=== PATIENT | female | born 1990 | race Caucasian/White ===

== ENCOUNTER 2017-01-25 23:47 | Emergency (ER) | payer OTHER ==
[~2017-01-25] VITALS: Ht 172.7 cm; Wt 89.8 kg
[2017-01-25 23:52] VITALS: BP 138/75
--- NOTE | 2017-01-26 01:30 | NUR ---
PATIENT AMBULATED TO ER BED 8.
--- NOTE | 2017-01-26 01:40 | NUR ---
PT IS 26/F BIB BOYFRIEND TO ED WITH C/O EPIGASTRIC PAIN, RADIATING TO HER LOWER BACK ST ARTED TODAY 2044 HOURS. PT STATES NO MED HX. DENIES N/V/D; SKIN IS PINK/WARM/DRY; AAOX4 WITH EVEN AND STEADY GAIT; LUNGS CLEAR BL; HR EVEN AND REGULAR; PT DENIES ANY FEVER, CP, SOB, OR COUGH AT THIS TIME; PATIENT STATES PAIN OF 5/10 AT THIS TIME; VSS; PATIENT POSITIONED FOR COMFORT; HOB ELEVATED; BEDRAILS UP X2; BED DOWN. ER MD MADE AWARE OF PT STATUS.
[2017-01-26] MEDS ORDERED: KETOROLAC 60 MG/2 ML VIAL IM ONE (02:05)
--- NOTE | 2017-01-26 02:40 | NUR ---
PT BACK ON UNIT FROM X-RAY
[2017-01-26 02:58] VITALS: BP 123/60
--- NOTE | 2017-01-26 02:58 | NUR ---
Patient discharged with v/s stable. Written and verbal after care instructions given and explained. Patient alert, oriented and verbalized understanding of instructions. Ambulatory with steady gait. All questions addressed prior to discharge. ID band removed. Patient advised to follow up with PMD. Rx of TRAMADOL HYDROCHLORIDE given. Patient educated on indication of medication including possible reaction and side effects. Opportunity to ask questions provided and answered.
== END 2017-01-26 02:58 | disposition home or self-care (01) ==
LOC: MED 23:47
DX: S29.012A Strain of muscle and tendon of back wall of thorax, initial encounter (principal); F41.9 Anxiety disorder, unspecified; X58.XXXA Exposure to other specified factors, initial encounter; Y93.89 Activity, other specified; Y92.89 Other specified places as the place of occurrence of the external cause; Y99.8 Other external cause status
CPT/HCPCS: 74022; 81002; 81025; 96372; 99284; J1885

== ENCOUNTER 2017-01-29 10:25 | Emergency (ER) | payer OTHER ==
[~2017-01-29] VITALS: Ht 152.4 cm; Wt 84.8 kg
[2017-01-29 10:54] VITALS: BP 129/76
--- NOTE | 2017-01-29 12:31 | NUR ---
Pt taken to bed 8.
--- NOTE | 2017-01-29 12:36 | NUR ---
26/ presents to ED for evaluation of vomiting x2 days. Patient states "I can't keep anything down." Patient c/o severe nausea and vomiting. Pt also reports she was seen here [facility] for epigastric pain and was discharged with Tramadol. Pt denies abd pain at this time. Pt c/o lower back pain and states "Sometimes it radiates up to my left shoulder." No vomiting noted at this time. Patient is AOX4, clear speech, ambulatory with steady gait. VSS. Pt states "I've been drinking pedialyte today and I kept that down." Patient also states she had a fever yesterday, "I had a fever for a few minutes so I hopped in the shower and it went away." Patient afebrile at this time. Pt provided with a warm blanket and placed in position of comfort. Boyfriend at bedside. Pt awaiting ERMD.
--- NOTE | 2017-01-29 13:14 | NUR ---
Patient being evaluated by Dr. Marr at bedside.
[2017-01-29] MEDS ORDERED: KETOROLAC 30 MG/ML VIAL IVP ONE (13:20)
[2017-01-29] MEDS ORDERED: NACL 0.9% 500 ML IV ONE (13:20)
[2017-01-29] MEDS ORDERED: ONDANSETRON 4 MG/2 ML VIAL IVP ONE (13:20)
--- NOTE | 2017-01-29 13:38 | NUR ---
MEDICATED FOR NAUSEA AND PAIN
[2017-01-29 13:42] LABS: BASOPHILS # (AUTO) 0.3 K/uL (0.00-0.22); BASOPHILS % (AUTO) 2.7 % (0.0-2.0); EOSINOPHILS # (AUTO) 0.3 K/uL (0-0.4); EOSINOPHILS % (AUTO) 2.2 % (0.0-4.0); HEMATOCRIT 39.7 % (36-48); HEMOGLOBIN 13.1 g/dL (12.0-16.0); LYMPHOCYTES # (AUTO) 2.2 K/uL (2.5-16.5); LYMPHOCYTES % (AUTO) 16.8 % (20.5-51.1); MEAN CORPUSCULAR HEMOGLOBIN 28 pg (27-31); MEAN CORPUSCULAR HGB CONC 33 g/dL (33-37); MEAN CORPUSCULAR VOLUME 86 fL (80-94); MONOCYTES # (AUTO) 0.8 K/uL (0.8-1.0); MONOCYTES % (AUTO) 5.9 % (1.7-9.3); NEUTROPHILS # (AUTO) 9.3 K/uL (1.8-7.7); NEUTROPHILS % (AUTO) 72.4 % (42.2-75.2); PLATELET COUNT (AUTO) 256 K/uL (140-450); RED BLOOD CELL COUNT(AUTO) 4.64 MIL/uL (4.20-5.40); RED CELL DISTRIBUTION WIDTH 13.3 % (11.6-13.7); WHITE BLOOD COUNT (AUTO) 12.9 K/uL (4.8-10.8)
[2017-01-29 13:47] LABS: ANION GAP 11.4 (8-16); CARBON DIOXIDE 28.7 mmol/L (21-32); CREATININE 1.1 mg/dL (0.6-1.3); POTASSIUM 4.1 mmol/L (3.5-5.1)
--- NOTE | 2017-01-29 13:49 | NUR ---
Patient up to bathroom to provide UA. Pt ambulated with steady gait.
[2017-01-29 13:53] LABS: ALBUMIN 3.9 g/dL (3.4-5.0); TOTAL BILIRUBIN 0.4 mg/dL (0.0-1.0); TOTAL PROTEIN, SERUM 7.7 g/dL (6.4-8.2)
--- NOTE | 2017-01-29 14:05 | NUR ---
Patient taken to CT via w/c.
--- NOTE | 2017-01-29 14:13 | NUR ---
Patient returned from CT via w/c and placed into bed 8. IV fluids reconnected. Pt placed in position of comfort. All need addressed.
[2017-01-29] MEDS ORDERED: fentaNYL 0.05 MG/ML VIAL IVP ONE (15:00)
--- NOTE | 2017-01-29 15:18 | NUR ---
MEDICATED FOR PAIN
--- NOTE | 2017-01-29 15:35 | NUR ---
IV removed, catheter intact and site benign. Applied folded 4x4 gauze and tape to stop bleeding.
[2017-01-29 15:40] VITALS: BP 122/78
--- NOTE | 2017-01-29 15:40 | NUR ---
Chart checked and completed. The patient's care was reviewed and supervised by Brandy Gramajo RN.
--- NOTE | 2017-01-29 15:40 | NUR ---
Patient discharged with v/s stable. Written and verbal after care instructions given and explained. Patient alert, oriented and verbalized understanding of instructions. Ambulatory with steady gait. All questions addressed prior to discharge. ID band removed. Patient advised to follow up with PMD. Rx of TRAMADOL,ZOFRAN,MOTRIN given. Patient educated on indication of medication including possible reaction and side effects. Opportunity to ask questions provided and answered.
== END 2017-01-29 15:40 | disposition home or self-care (01) ==
LOC: MED 10:25
DX: K29.00 Acute gastritis without bleeding (principal); M51.24 Other intervertebral disc displacement, thoracic region; F41.9 Anxiety disorder, unspecified
CPT/HCPCS: 36415; 74176; 80053; 81025; 83690; 85025; 96361; 96374; 96375; 99285; J1885; J2405; J3010; J7030